=== PATIENT | male | born 1955 | race Caucasian/White ===

== ENCOUNTER → 2021-05-03 | Outpatient (CLI) | payer OTHER ==
[~2021-05-03] MED LIST: ACID CONTROLLER20 MG PO; COLACE 100MG C100 MG PO; COZAAR100 MG PO; DILTIAZEM 24HR120 M1 PO; FERROUS SULFAT325 M2 PO; MAG-OX 400 TAB400 MG PO; MIRTAZAPINE15 MG PO; NEURONTIN 300300 MG PO; NITROGLYCERIN0.4 MG SL; PROTONIX40 MG PO; SPIRIVA HANDIH18 MCG INH; XARELTO20 MG PO
== END ==
LOC: HEART CORB 08:30
DX: R07.2 Precordial pain (principal); R06.02 Shortness of breath; R07.89 Other chest pain; I48.0 Paroxysmal atrial fibrillation; I70.0 Atherosclerosis of aorta; Z79.01 Long term (current) use of anticoagulants; I11.9 Hypertensive heart disease without heart failure; E78.5 Hyperlipidemia, unspecified; F17.200 Nicotine dependence, unspecified, uncomplicated
CPT/HCPCS: 78452; A9502; J2785